=== PATIENT | male | born 1990 | race Caucasian/White ===

== ENCOUNTER 2018-08-16 17:26 | Emergency (ER) | payer OTHER ==
[~2018-08-16] VITALS: Ht 170.2 cm; Wt 75.3 kg
[2018-08-16 17:29] VITALS: Ht 170.2 cm; Wt 75.3 kg
[2018-08-16 18:57] LABS: AMPHETAMINE QUAL UR NONE DETECTED (See below)
[2018-08-16 19:46] VITALS: BP 118/71
== END 2018-08-16 19:46 | disposition home or self-care (01) ==
LOC: ED 17:26
PROVIDERS: Emergency Medicine
DX: R07.89 Other chest pain (principal); R09.1 Pleurisy